=== PATIENT | female | born 1975 | race Caucasian/White ===

== ENCOUNTER 2023-03-09 19:20 | Emergency (ER) | payer SELFPAY ==
[2023-03-09 19:35] VITALS: BP 127/79; PULSE 79; RESP 20; TEMP 97.6; BMI 22.2
== END 2023-03-09 21:36 | disposition home or self-care (01) ==
LOC: JERFT 19:20
DX: R50.9 Fever, unspecified (principal); R51.9 Headache, unspecified; R53.83 Other fatigue; U07.1 COVID-19
CPT/HCPCS: 0241U-QW; 99283-25

== ENCOUNTER 2023-09-03 23:07 | Emergency (ER) | payer OTHER ==
[2023-09-03 23:12] VITALS: BP 145/94; PULSE 84; RESP 18; TEMP 97.7; BMI 22.8
[2023-09-03 23:54] LABS: THROAT:GRP A STREP NOT DETECTED (NOTDETECTED)
== END 2023-09-04 00:07 | disposition home or self-care (01) ==
LOC: JERFT 23:07
DX: J02.9 Acute pharyngitis, unspecified (principal); Z20.822 Contact with and (suspected) exposure to COVID-19; Y99.0 Civilian activity done for income or pay
CPT/HCPCS: 0241U-QW; 87651; 99283-25

== ENCOUNTER 2023-12-23 16:57 | Emergency (ER) | payer BC, OTHER ==
[2023-12-23 17:25] VITALS: BP 136/84; PULSE 67; RESP 16; TEMP 98; BMI 24.0
[2023-12-23] MEDS ORDERED: ACETAMINOPHEN 500 MG TABLET (FP) ONE (17:52)
[2023-12-23] MEDS: ACETAMINOPHEN 500 MG TABLET (FP) PO ONE (17:56)
== END 2023-12-23 18:00 | disposition home or self-care (01) ==
LOC: JERFT 16:57 → JER 16:57 → JERFT 18:00
DX: S69.91XA Unspecified injury of right wrist, hand and finger(s), initial encounter (principal); X50.9XXA Other and unspecified overexertion or strenuous movements or postures, initial encounter
CPT/HCPCS: 73110-TC-RT-FY; 99283-25